=== PATIENT | male | born 1935 | race Caucasian/White ===

== ENCOUNTER 2017-03-31 09:25 | Emergency (ER) | payer OTHER, MEDICARE, MEDICAID ==
[~2017-03-31] VITALS: Ht 172.7 cm; Wt 104.5 kg
[~2017-03-31 09:25] MED LIST: APIX2.5T PO; ASPI-611 PO; ATOR10TA70 PO; BUDE10.2 INH; CETI-102 PO; FOLI1TAB16 PO; GLIP10TA11 PO; HYDR-565 PO; KETO5DRO82 LEFTEYE; KETO5DRO82 RIGHTEYE; LANTUS SQ; LOSA50TA3 PO; METH500T PO; METO100T14 PO; OMEP20TA5 PO; TERA2CAP4 PO; VIG0.5OS RIGHTEYE
[2017-03-31] MEDS ORDERED: LIDOcaine 1.5% w/epinephrine 1:200,000 5ml ampul IJ ONE (10:45)
[2017-03-31] MEDS ORDERED: HYDROcodone/acetaminophen 5mg/325mg tablet PO ONE (11:00)
[2017-03-31] MEDS ORDERED: cephalexin 500mg capsule PO ONE (12:30)
[2017-03-31] MEDS ORDERED: CEPH-571 PO (12:32)
[2017-03-31] MEDS ORDERED: HYDR-569 PO (12:34)
[2017-03-31 14:17] VITALS: BP 147/73
== END 2017-03-31 14:21 | disposition home or self-care (01) ==
LOC: ER 09:25
DX: S83.91XA Sprain of unspecified site of right knee, initial encounter (principal); M25.461 Effusion, right knee; I25.10 Atherosclerotic heart disease of native coronary artery without angina pectoris; E11.9 Type 2 diabetes mellitus without complications; I10 Essential (primary) hypertension; J45.909 Unspecified asthma, uncomplicated; Z79.82 Long term (current) use of aspirin; Z79.4 Long term (current) use of insulin; Z95.1 Presence of aortocoronary bypass graft; W00.0XXA Fall on same level due to ice and snow, initial encounter; Y93.89 Activity, other specified; Y92.89 Other specified places as the place of occurrence of the external cause; Y99.8 Other external cause status
CPT/HCPCS: 12002; 20610; 73564; 73700; 99284; A6446; A6449; J3490

== ENCOUNTER 2017-10-04 10:11 | Emergency (ER) | payer MEDICARE, MEDICAID, OTHER ==
[~2017-10-04] VITALS: Ht 170.2 cm; Wt 96.0 kg
[~2017-10-04 10:11] MED LIST changes: +CEPH-571 PO; +HYDR-569 PO
[2017-10-04 10:41] LABS: BASOPHILS % (AUTO) 0.3 % (0-1); EOSINOPHILS # (AUTO) 0.3 X10'3 (0-0.9); EOSINOPHILS % (AUTO) 4.8 % (0-6); HEMOGLOBIN 12.3 g/dl (14.0-17.9); LYMPHOCYTES # (AUTO) 1.5 X10'3 (1.1-4.8); LYMPHOCYTES % (AUTO) 20.6 % (21-51); MEAN CORPUSCULAR HEMOGLOBIN 32.5 PG (27.0-31.0); MEAN CORPUSCULAR HGB CONC 34.3 % (33.0-36.5); MEAN CORPUSCULAR VOLUME 94.9 FL (78-98); MEAN PLATELET VOLUME 7.7 FL (7.4-10.4); MONOCYTES # (AUTO) 0.7 X10'3 (0-0.9); MONOCYTES % (AUTO) 9.9 % (2-12); NEUTROPHILS # (AUTO) 4.6 X10'3 (1.8-7.7); NEUTROPHILS % (AUTO) 64.4 % (42-75); PLATELET COUNT 206 X10'3 (140-440); RED BLOOD COUNT 3.79 X10'6 (4.70-6.10); RED CELL DISTRIBUTION WIDTH 15.3 % (11.5-14.5); WHITE BLOOD COUNT 7.1 X10'3 (4.5-11.0)
[2017-10-04 10:50] LABS: PARTIAL THROMBOPLASTIN TIME 30 SECONDS (22-32); PROTHROMBIN TIME 10.3 SECONDS (9.0-12.0)
[2017-10-04 10:55] LABS: ALANINE AMINOTRANSFERASE 34 U/L (12-78); ALBUMIN 3.1 G/DL (3.4-5.0); ALBUMIN/GLOBULIN RATIO 0.8 (1.1-1.5); ALKALINE PHOSPHATASE 85 IU/L (46-116); ANION GAP 8 (8-16); ASPARTATE AMINO TRANSFERASE 23 U/L (10-37); BILIRUBIN,TOTAL 0.4 MG/DL (0.1-1.0); BLOOD UREA NITROGEN 38 MG/DL (7-18); BUN/CREATININE RATIO 18.2 (5.4-32.0); CALCIUM 8.7 MG/DL (8.5-10.1); CHLORIDE 102 MMOL/L (99-107); CREATININE 2.09 MG/DL (0.60-1.10); GLUCOSE 191 MG/DL (70-104); SODIUM 134 MMOL/L (135-145); TOTAL CARBON DIOXIDE 23.9 MMOL/L (24-32); eGFR 31 ML/MIN
[2017-10-04 12:29] VITALS: BP 149/74
== END 2017-10-04 12:31 | disposition home or self-care (01) ==
LOC: ER 10:11
DX: R00.2 Palpitations (principal); I12.9 Hypertensive chronic kidney disease with stage 1 through stage 4 chronic kidney disease, or unspecified chronic kidney disease; E11.22 Type 2 diabetes mellitus with diabetic chronic kidney disease; N18.9 Chronic kidney disease, unspecified; J45.909 Unspecified asthma, uncomplicated; I25.10 Atherosclerotic heart disease of native coronary artery without angina pectoris; Z95.1 Presence of aortocoronary bypass graft; Z79.82 Long term (current) use of aspirin; Z79.899 Other long term (current) drug therapy; Z79.4 Long term (current) use of insulin
CPT/HCPCS: 36415; 71045; 80053; 84484; 85025; 85610; 85730; 93005; 99285

== ENCOUNTER 2018-03-15 11:59 | Inpatient (IN) | payer MEDICARE, OTHER ==
[~2018-03-15] VITALS: Ht 172.7 cm; Wt 115.0 kg
[~2018-03-15 11:59] MED LIST changes: +HYDR-4353 PO; +HYDR-4383 PO; -HYDR-565 PO; -HYDR-569 PO
[2018-03-15 12:51] LABS: BASOPHILS % (AUTO) 0.2 % (0-1); EOSINOPHILS # (AUTO) 0.1 X10'3 (0-0.9); EOSINOPHILS % (AUTO) 0.9 % (0-6); HEMOGLOBIN 12.3 g/dl (14.0-17.9); LYMPHOCYTES # (AUTO) 0.5 X10'3 (1.1-4.8); LYMPHOCYTES % (AUTO) 7.3 % (21-51); MEAN CORPUSCULAR HEMOGLOBIN 32.6 PG (27.0-31.0); MEAN CORPUSCULAR HGB CONC 33.3 g/dL (33.0-36.5); MEAN CORPUSCULAR VOLUME 97.8 FL (78-98); MEAN PLATELET VOLUME 7.1 FL (7.4-10.4); MONOCYTES # (AUTO) 0.1 X10'3 (0-0.9); MONOCYTES % (AUTO) 1.7 % (2-12); NEUTROPHILS # (AUTO) 6.3 X10'3 (1.8-7.7); NEUTROPHILS % (AUTO) 89.9 % (42-75); PLATELET COUNT 245 X10'3 (140-440); RED BLOOD COUNT 3.79 X10'6 (4.70-6.10); RED CELL DISTRIBUTION WIDTH 15.3 % (11.5-14.5); WHITE BLOOD COUNT 7.1 X10'3 (4.5-11.0)
[2018-03-15 13:04] LABS: INR 1.1 INR; PROTHROMBIN TIME 10.7 SECONDS (9.0-12.0)
[2018-03-15 13:18] LABS: ALANINE AMINOTRANSFERASE 48 U/L (12-78); ALBUMIN 2.7 G/DL (3.4-5.0); ALBUMIN/GLOBULIN RATIO 0.8 (1.1-1.5); ALKALINE PHOSPHATASE 92 IU/L (46-116); ANION GAP 9 (8-16); ASPARTATE AMINO TRANSFERASE 28 U/L (10-37); BILIRUBIN,TOTAL 0.4 MG/DL (0.1-1.0); BLOOD UREA NITROGEN 36 MG/DL (7-18); BUN/CREATININE RATIO 18.9 (5.4-32.0); CALCIUM 8.1 MG/DL (8.5-10.1); CHLORIDE 103 MMOL/L (99-107); GLUCOSE 188 MG/DL (70-104); MAGNESIUM 1.7 MG/DL (1.5-2.4); POTASSIUM 4.7 MMOL/L (3.5-5.1); SODIUM 138 MMOL/L (135-145); TOTAL CARBON DIOXIDE 26.4 MMOL/L (24-32); TOTAL PROTEIN 6.2 G/DL (6.4-8.2); TROPONIN I < 0.04 NG/ML (0.0-0.05); eGFR 34 ML/MIN
[2018-03-15] MEDS ORDERED: furosemide 10 MG/1 ML 10ml inj IV ONE (13:45)
[2018-03-15] MEDS ORDERED: AMLO5TAB PO (13:50)
[2018-03-15] MEDS ORDERED: APIX5TAB3 PO (13:50)
[2018-03-15] MEDS ORDERED: ALLO100T PO (13:50)
[2018-03-15] MEDS ORDERED: ATOR20TA66 PO (13:59)
[2018-03-15] MEDS ORDERED: CARB1DRO18 OP (13:59)
[2018-03-15] MEDS ORDERED: AZIT250T83 PO (13:59)
[2018-03-15] MEDS ORDERED: CHOL500049 PO (13:59)
[2018-03-15] MEDS ORDERED: INSU100V12 SQ (13:59)
[2018-03-15] MEDS ORDERED: FLUO15CR2 TOP (13:59)
[2018-03-15] MEDS ORDERED: PRED20TA PO (13:59)
[2018-03-15] MEDS ORDERED: SAXA5TAB PO (14:00)
[2018-03-15] MEDS ORDERED: SPIR50TA5 PO (14:00)
--- NOTE | 2018-03-15 14:03 | NUR ---
PATIENT UP TO BSC NO BM
--- NOTE | 2018-03-15 14:04 | NUR ---
[facility] UPDATING FAMILY
[2018-03-15] MEDS ORDERED: morphine 4 MG/ML inj SYRINge IV PRN (14:45)
[2018-03-15] MEDS ORDERED: magnesium hydroxide 30ml (MOM) UD suspension PO PRN (14:45)
[2018-03-15] MEDS ORDERED: mag hydrox/Alum hydrox/simeth 30ml oral suspension PO PRN (14:45)
[2018-03-15] MEDS ORDERED: bisacodyl 10mg suppository rectal RC PRN (14:45)
[2018-03-15] MEDS ORDERED: potassium Cl 40MEQ/NS 500ml 500 ML IV PRN ×2 (14:45)
[2018-03-15] MEDS ORDERED: magnesium 4gm in 100ml NS 100 ML IV PRN (14:45)
[2018-03-15] MEDS ORDERED: magnesium 2GM in 50ml NS 50 ML IV PRN (14:45)
[2018-03-15] MEDS ORDERED: magnesium Cl slow-release 64mg tablet PO PRN (14:45)
[2018-03-15] MEDS ORDERED: ondansetron/PF 4mg/2ml inj IV PRN (14:45)
[2018-03-15] MEDS ORDERED: potassium Cl 20 mEq SR tablet PO PRN ×2 (14:45)
[2018-03-15] MEDS ORDERED: acetaminophen 325mg tablet PO PRN (14:45)
[2018-03-15] MEDS ORDERED: LORazepam 1 MG tablet PO ONE (15:15)
[2018-03-15] MEDS ORDERED: haloperidol 5mg tablet PO ONE (15:15)
[2018-03-15 15:51] LABS: CLARITY,URINE CLEAR (Clear); COLOR,URINE YELLOW (Yellow); GLUCOSE, URINE NEGATIVE (Neg); KETONES,URINE NEGATIVE (Neg); LEUKOCYTE ESTERASE ,URINE NEGATIVE (Neg); NITRITES, URINE NEGATIVE (Neg); OCCULT BLOOD,URINE TRACE-INTACT (Neg); PROTEIN,URINE 100 mg/dl (Neg); UROBILINOGEN,URINE 0.2 E.U/dL (0.2-1.0)
[2018-03-15 15:53] LABS: UA COLLECTION TYPE NON-SPECIFIED
[2018-03-15 16:00] LABS: BACTERIA,URINE NONE SEEN /HPF (Neg); MUCUS STRANDS NONE SEEN /LPF (Neg); RBC,URINE 0-2 /HPF (0-2); SQUAMOUS EPITHELIAL CELL,UR NONE SEEN /LPF (FEW); WBC,URINE NONE SEEN /HPF (0-4)
[2018-03-15] MEDS ORDERED: polyvinyl alcohol ophthalmic drops 15ml bottle EACHEYE PRN (17:30)
[2018-03-15] MEDS ORDERED: glucagon, human recombinant 1mg kit SUBCUT PRN (17:35)
[2018-03-15] MEDS ORDERED: MESSAGE TO PHARMACY PO ONE (17:35)
[2018-03-15] MEDS ORDERED: dextrose 50%-water 50ml dispensing syringe IV PRN ×2 (17:35)
[2018-03-15] MEDS ORDERED: dextrose ORAL solution 15 GM/59 ML bottle PO PRN ×2 (17:35)
[2018-03-15] MEDS ORDERED: albuterol 2.5 MG/3 ML nebule NEB ONE (17:45)
--- NOTE | 2018-03-15 19:06 | NUR ---
PAGED RESPIRATORY FOR NEBS PT WITH AUDIBLE WHEEZE PATIENT ATE 100% OF HIS DINNER
[2018-03-15] MEDS: budesonide 0.5mg/2ml UD nebule IH SCH (19:32)
[2018-03-15] MEDS: albuterol 2.5 MG/3 ML nebule NEB SCH (19:32)
[2018-03-15] MEDS ORDERED: albuterol 2.5 MG/3 ML nebule NEB PRN (19:45)
--- NOTE | 2018-03-15 19:48 | NUR ---
Rec'd call from Reyna CALLE, she will be taking patient, report given, questions answered.
[2018-03-15] MEDS ORDERED: heparin, porcine 5000 units/ml vial SQ SCH (20:00)
--- NOTE | 2018-03-15 20:00 | NUR ---
Received report from WRECKING CRANE ENGINE OPERATOR. Patient to follow shortly.
--- NOTE | 2018-03-15 20:15 | NUR ---
Patient arrived to floor via gurney. Settled into bed, in no pain or respiratory distress at this time. Son at bedside.
[2018-03-15] MEDS: apixaban 5mg tablet PO SCH (20:39)
[2018-03-15] MEDS: docusate sod 100mg capsule PO SCH (20:39)
[2018-03-15] MEDS: furosemide 40mg/4ml inj IV SCH (20:39)
[2018-03-15] MEDS: Terazosin 1mg capsule PO SCH (20:40)
[2018-03-15] MEDS: metoprolol tartrate 50mg tablet PO SCH (20:40)
[2018-03-15 21:30] VITALS: BP 174/84
[2018-03-15] MEDS: insulin glargine (Lantus) pen - multi-dose SQ SCH (22:16)
[2018-03-15] MEDS: insulin Lispro (HumaLOG) vial - multi-dose SQ SCH (22:19)
[2018-03-16] VITALS: BP 160/73
[2018-03-16] MEDS: morphine 4 MG/ML inj SYRINge IV PRN ×2 (01:11→13:49)
[2018-03-16] MEDS: albuterol 2.5 MG/3 ML nebule NEB SCH ×5 (01:35→22:27)
--- NOTE | 2018-03-16 06:35 | NUR ---
Problems reprioritized. Patient report given, questions answered & plan of care reviewed with Humaira Edmondson.
[2018-03-16 07:00] VITALS: BP 142/73
[2018-03-16 07:29] LABS: ALBUMIN 2.4 G/DL (3.4-5.0); ANION GAP 9 (8-16); BLOOD UREA NITROGEN 42 MG/DL (7-18); CALCIUM 8.3 MG/DL (8.5-10.1); CHLORIDE 102 MMOL/L (99-107); GLUCOSE 162 MG/DL (70-104); MAGNESIUM 1.6 MG/DL (1.5-2.4); POTASSIUM 3.9 MMOL/L (3.5-5.1); SODIUM 139 MMOL/L (135-145); TOTAL CARBON DIOXIDE 27.8 MMOL/L (24-32); eGFR 30 ML/MIN
[2018-03-16 07:32] LABS: BASOPHILS % (AUTO) 0.1 % (0-1); EOSINOPHILS % (AUTO) 0.2 % (0-6); HEMATOCRIT 35.3 % (42.0-52.0); HEMOGLOBIN 11.9 g/dl (14.0-17.9); LYMPHOCYTES # (AUTO) 1.2 X10'3 (1.1-4.8); LYMPHOCYTES % (AUTO) 15.1 % (21-51); MEAN CORPUSCULAR HEMOGLOBIN 32.8 PG (27.0-31.0); MEAN CORPUSCULAR HGB CONC 33.6 g/dL (33.0-36.5); MEAN CORPUSCULAR VOLUME 97.7 FL (78-98); MEAN PLATELET VOLUME 7.6 FL (7.4-10.4); MONOCYTES # (AUTO) 0.8 X10'3 (0-0.9); MONOCYTES % (AUTO) 10.1 % (2-12); NEUTROPHILS # (AUTO) 5.9 X10'3 (1.8-7.7); NEUTROPHILS % (AUTO) 74.5 % (42-75); PLATELET COUNT 237 X10'3 (140-440); RED BLOOD COUNT 3.61 X10'6 (4.70-6.10); RED CELL DISTRIBUTION WIDTH 14.4 % (11.5-14.5); WHITE BLOOD COUNT 7.9 X10'3 (4.5-11.0)
[2018-03-16] MEDS: pantoprazole 40mg Tablet.DR PO SCH (07:47)
[2018-03-16] MEDS: furosemide 40mg/4ml inj IV SCH ×2 (07:48→21:25)
[2018-03-16] MEDS: aspirin 81mg tablet.DR PO SCH (07:48)
[2018-03-16] MEDS: atorvastatin 20mg tablet PO SCH (07:48)
[2018-03-16] MEDS: losartan 50mg tablet PO SCH (07:48)
[2018-03-16] MEDS: spironolactone 50 MG tablet PO SCH (07:48)
[2018-03-16] MEDS: metoprolol tartrate 50mg tablet PO SCH (07:48)
[2018-03-16] MEDS: docusate sod 100mg capsule PO SCH ×2 (07:48→21:27)
[2018-03-16] MEDS: allopurinol 100mg tablet PO SCH (07:48)
[2018-03-16] MEDS: apixaban 5mg tablet PO SCH ×2 (07:49→21:28)
[2018-03-16] MEDS: K and/or MAG REPLACEMENT MC SCH (08:00)
[2018-03-16] MEDS: budesonide 0.5mg/2ml UD nebule IH SCH ×2 (08:36→18:37)
[2018-03-16] MEDS: linagliptin 5mg tablet PO SCH (09:29)
[2018-03-16] MEDS: betamet diprop/prop gly 0.05% cream 15gm TP SCH (09:29)
[2018-03-16] MEDS: insulin Lispro (HumaLOG) vial - multi-dose SQ SCH ×3 (09:33→19:04)
[2018-03-16 11:00] VITALS: BP 141/65
--- NOTE | 2018-03-16 14:17 | NUR ---
Consult: Pt admit with SOB/heart failure. Pt is w/ A1C 7.4. Met pt at bedside gave written and verbal DM education. Pt states he uses insulin sometimes but rarely checks his BS. Pt's son states he leaves his father DM friendly food but pt does not eat it during the week only when son is w/ him on weekends. Will continue to monitor. Addendum: 03/16/18 at [address] Amended: Links added. Addendum: 03/16/18 at [address] I have reviewed and agree with note by Tire Changer. Jeanine Calix RD
[2018-03-16] MEDS ORDERED: methylPREDNISolone sod succ 125mg/2ml vial IV ONE (15:05)
[2018-03-16] MEDS: HYDROcodone/acetaminophen 10/325mg tab PO PRN ×2 (16:44→23:19)
[2018-03-16] MEDS: hyDRALAzine 10mg tablet PO SCH ×2 (16:45→23:18)
[2018-03-16 19:00] VITALS: BP 131/56
[2018-03-16] MEDS ORDERED: metoprolol tartrate 50mg tablet PO SCH (20:00)
[2018-03-16] MEDS: methylPREDNISolone sod succ 125mg/2ml vial IV SCH (21:27)
[2018-03-16] MEDS: metoprolol tartrate 25mg tablet PO SCH (21:38)
[2018-03-16] MEDS: Terazosin 1mg capsule PO SCH (21:41)
[2018-03-16] MEDS: insulin glargine (Lantus) pen - multi-dose SQ SCH (22:02)
[2018-03-17] VITALS: BP 118/58
--- NOTE | 2018-03-17 00:50 | NUR ---
Patient awoke and sitting on edge of bed stating that he does not feel well, but not sure why. VS taken: 98.2, 73,16,151/79, 93% on 2 L NC. Accue check taken and BS was 248. When asked again what was bothering him his head, or stomach, pt. stated that he felt a little sick. Zofran given and pt. oOB in recliner at this time.
[2018-03-17] MEDS: methylPREDNISolone sod succ 125mg/2ml vial IV SCH ×3 (02:04→14:18)
[2018-03-17] MEDS: albuterol 2.5 MG/3 ML nebule NEB SCH ×4 (02:38→14:37)
[2018-03-17 06:12] LABS: BASOPHILS % (AUTO) 0.2 % (0-1); EOSINOPHILS % (AUTO) 0 % (0-6); HEMATOCRIT 37.3 % (42.0-52.0); HEMOGLOBIN 12.5 g/dl (14.0-17.9); LYMPHOCYTES # (AUTO) 0.2 X10'3 (1.1-4.8); MEAN CORPUSCULAR HEMOGLOBIN 32.7 PG (27.0-31.0); MEAN CORPUSCULAR HGB CONC 33.6 g/dL (33.0-36.5); MEAN CORPUSCULAR VOLUME 97.3 FL (78-98); MEAN PLATELET VOLUME 7.5 FL (7.4-10.4); MONOCYTES % (AUTO) 0.8 % (2-12); NEUTROPHILS # (AUTO) 5.8 X10'3 (1.8-7.7); PLATELET COUNT 211 X10'3 (140-440); RED BLOOD COUNT 3.83 X10'6 (4.70-6.10); RED CELL DISTRIBUTION WIDTH 14.7 % (11.5-14.5); WHITE BLOOD COUNT 6.1 X10'3 (4.5-11.0)
--- NOTE | 2018-03-17 06:30 | NUR ---
Problems reprioritized. Patient report given, questions answered & plan of care reviewed with Debbie CALLE.
[2018-03-17 06:32] LABS: ALBUMIN 2.4 G/DL (3.4-5.0); ANION GAP 11 (8-16); BLOOD UREA NITROGEN 47 MG/DL (7-18); BUN/CREATININE RATIO 20.5 (5.4-32.0); CALCIUM 8.4 MG/DL (8.5-10.1); CHLORIDE 97 MMOL/L (99-107); CREATININE 2.29 MG/DL (0.60-1.10); GLUCOSE 300 MG/DL (70-104); MAGNESIUM 1.8 MG/DL (1.5-2.4); POTASSIUM 4.4 MMOL/L (3.5-5.1); SODIUM 136 MMOL/L (135-145); TOTAL CARBON DIOXIDE 28.3 MMOL/L (24-32); eGFR 27 ML/MIN
[2018-03-17 07:00] VITALS: BP 139/65
[2018-03-17] MEDS: budesonide 0.5mg/2ml UD nebule IH SCH (07:10)
[2018-03-17] MEDS: K and/or MAG REPLACEMENT MC SCH (08:00)
[2018-03-17] MEDS: docusate sod 100mg capsule PO SCH (08:04)
[2018-03-17] MEDS: atorvastatin 20mg tablet PO SCH (08:04)
[2018-03-17] MEDS: spironolactone 50 MG tablet PO SCH (08:04)
[2018-03-17] MEDS: allopurinol 100mg tablet PO SCH (08:04)
[2018-03-17] MEDS: pantoprazole 40mg Tablet.DR PO SCH (08:04)
[2018-03-17] MEDS: losartan 50mg tablet PO SCH (08:04)
[2018-03-17] MEDS: apixaban 5mg tablet PO SCH (08:04)
[2018-03-17] MEDS: metoprolol tartrate 25mg tablet PO SCH (08:05)
[2018-03-17] MEDS: aspirin 81mg tablet.DR PO SCH (08:05)
[2018-03-17] MEDS: furosemide 40mg/4ml inj IV SCH (08:05)
[2018-03-17] MEDS: hyDRALAzine 10mg tablet PO SCH (08:06)
[2018-03-17] MEDS: betamet diprop/prop gly 0.05% cream 15gm TP SCH (08:09)
[2018-03-17] MEDS: linagliptin 5mg tablet PO SCH (08:09)
[2018-03-17 12:00] VITALS: BP 131/57
[2018-03-17] MEDS ORDERED: COL100C PO (13:38)
[2018-03-17] MEDS ORDERED: PRED10TA23 PO (13:38)
[2018-03-17] MEDS ORDERED: hyDRALAzine tablet PO (13:38)
[2018-03-17] MEDS ORDERED: METO25TA6 PO (13:38)
[2018-03-17] MEDS ORDERED: ALBU8.5H8 INH (13:39)
[2018-03-17] MEDS: insulin Lispro (HumaLOG) vial - multi-dose SQ SCH (14:13)
== END 2018-03-17 15:50 | disposition home health service (06) | DRG 291 ==
LOC: ER 11:59 → ED HOLD 14:44 → SUR 3N 20:30
PROVIDERS: ADMIT Internal Medicine; ATTEND Family Medicine
DX: I13.0 Hypertensive heart and chronic kidney disease with heart failure and stage 1 through stage 4 chronic kidney disease, or unspecified chronic kidney disease (principal); I50.43 Acute on chronic combined systolic (congestive) and diastolic (congestive) heart failure; J44.1 Chronic obstructive pulmonary disease with (acute) exacerbation; J45.901 Unspecified asthma with (acute) exacerbation; E11.22 Type 2 diabetes mellitus with diabetic chronic kidney disease; E11.21 Type 2 diabetes mellitus with diabetic nephropathy; I25.10 Atherosclerotic heart disease of native coronary artery without angina pectoris; I48.91 Unspecified atrial fibrillation; N18.3 Chronic kidney disease, stage 3 (moderate); Z79.01 Long term (current) use of anticoagulants; Z95.1 Presence of aortocoronary bypass graft
CPT/HCPCS: 36415; 71045; 80048; 80053; 81001; 82948; 83036; 83605; 83735; 83880; 84145; 84484; 85025; 85610; 87040; 87070; 87502; 87503; 93005; 93306; 94640; 94760; 96374; 99285; G0378; J1815; J1940; J2270; J2405; J2930; J7626

== ENCOUNTER 2018-05-13 12:01 | Emergency (ER) | payer MEDICARE, OTHER ==
[~2018-05-13] VITALS: Ht 172.7 cm; Wt 109.0 kg
[~2018-05-13 12:01] MED LIST changes: +ALBU8.5H8 INH; +ALLO100T PO; -APIX2.5T PO; +APIX5TAB3 PO; -ATOR10TA70 PO; +ATOR20TA66 PO; +CARB1DRO18 OP; -CEPH-571 PO; -CETI-102 PO; +CHOL500049 PO; +COL100C PO; +FLUO15CR2 TOP; -FOLI1TAB16 PO; -GLIP10TA11 PO; -HYDR-4353 PO; -HYDR-4383 PO; +INSU100V12 SQ; -KETO5DRO82 LEFTEYE; -KETO5DRO82 RIGHTEYE; -LANTUS SQ; -METH500T PO; -METO100T14 PO; +METO25TA6 PO; +SAXA5TAB PO; +SPIR50TA5 PO; -VIG0.5OS RIGHTEYE; +hyDRALAzine tablet PO
[2018-05-13 13:03] LABS: BASOPHILS % (AUTO) 0.6 % (0-1); EOSINOPHILS # (AUTO) 0.2 X10'3 (0-0.9); HEMATOCRIT 32.6 % (42.0-52.0); HEMOGLOBIN 10.8 g/dl (14.0-17.9); LYMPHOCYTES % (AUTO) 17.9 % (21-51); MEAN CORPUSCULAR HEMOGLOBIN 32.8 PG (27.0-31.0); MEAN CORPUSCULAR HGB CONC 33.2 g/dL (33.0-36.5); MEAN CORPUSCULAR VOLUME 98.9 FL (78-98); MEAN PLATELET VOLUME 7.5 FL (7.4-10.4); MONOCYTES # (AUTO) 0.5 X10'3 (0-0.9); MONOCYTES % (AUTO) 9.9 % (2-12); NEUTROPHILS # (AUTO) 3.8 X10'3 (1.8-7.7); NEUTROPHILS % (AUTO) 68.6 % (42-75); PLATELET COUNT 210 X10'3 (140-440); RED BLOOD COUNT 3.29 X10'6 (4.70-6.10); WHITE BLOOD COUNT 5.5 X10'3 (4.5-11.0)
[2018-05-13 13:17] LABS: ALANINE AMINOTRANSFERASE 19 U/L (12-78); ALBUMIN 2.6 G/DL (3.4-5.0); ALBUMIN/GLOBULIN RATIO 0.7 (1.1-1.5); ALKALINE PHOSPHATASE 86 IU/L (46-116); ANION GAP 8 (8-16); ASPARTATE AMINO TRANSFERASE 18 U/L (10-37); BILIRUBIN,TOTAL 0.3 MG/DL (0.1-1.0); BLOOD UREA NITROGEN 32 MG/DL (7-18); BUN/CREATININE RATIO 16.1 (5.4-32.0); CALCIUM 8.6 MG/DL (8.5-10.1); CHLORIDE 106 MMOL/L (99-107); CREATININE 1.99 MG/DL (0.60-1.10); GLUCOSE 143 MG/DL (70-104); POTASSIUM 5.2 MMOL/L (3.5-5.1); SODIUM 138 MMOL/L (135-145); TOTAL CARBON DIOXIDE 23.7 MMOL/L (24-32); TOTAL PROTEIN 6.2 G/DL (6.4-8.2); eGFR 32 ML/MIN
[2018-05-13] MEDS ORDERED: metoprolol tartrate 1mg/ml inj IV ONE (13:20)
[2018-05-13 13:38] LABS: PARTIAL THROMBOPLASTIN TIME 31 SECONDS (22-32); PROTHROMBIN TIME 10.1 SECONDS (9.0-12.0)
[2018-05-13] MEDS ORDERED: cloNIDine 0.1 mg tablet PO ONE (14:05)
[2018-05-13 14:44] VITALS: BP 200/90
[2018-05-13 14:56] LABS: CLARITY,URINE CLEAR (Clear); COLOR,URINE STRAW (Yellow); GLUCOSE, URINE NEGATIVE (Neg); KETONES,URINE NEGATIVE (Neg); LEUKOCYTE ESTERASE ,URINE NEGATIVE (Neg); NITRITES, URINE NEGATIVE (Neg); OCCULT BLOOD,URINE TRACE-INTACT (Neg); PH,URINE 7.5 (4.8-8.0); PROTEIN,URINE 100 mg/dl (Neg); UROBILINOGEN,URINE 0.2 E.U/dL (0.2-1.0)
[2018-05-13 14:57] LABS: UA COLLECTION TYPE CLN CATCH MIDSTREAM
[2018-05-13 15:03] LABS: MUCUS STRANDS NONE SEEN /LPF (Neg); SQUAMOUS EPITHELIAL CELL,UR NONE SEEN /LPF (FEW); WBC,URINE 0-4 /HPF (0-4)
[2018-05-13 15:04] LABS: BACTERIA,URINE NONE SEEN /HPF (Neg); RBC,URINE 0-2 /HPF (0-2); TRANSITIONAL EPI CELLS,URINE FEW /HPF
== END 2018-05-13 14:50 | disposition home or self-care (01) ==
LOC: ER 12:01
DX: R51 Headache (principal); I25.10 Atherosclerotic heart disease of native coronary artery without angina pectoris; J45.909 Unspecified asthma, uncomplicated; E11.9 Type 2 diabetes mellitus without complications; I11.0 Hypertensive heart disease with heart failure; I50.9 Heart failure, unspecified; Z95.1 Presence of aortocoronary bypass graft; Z79.899 Other long term (current) drug therapy; Z79.82 Long term (current) use of aspirin; Z79.4 Long term (current) use of insulin
CPT/HCPCS: 36415; 70450; 71045; 80053; 81001; 85025; 85610; 85730; 93005; 99284

== ENCOUNTER 2018-06-18 09:55 | Emergency (ER) | payer MEDICARE, OTHER ==
[~2018-06-18] VITALS: Ht 172.7 cm; Wt 104.4 kg
--- NOTE | 2018-06-18 10:10 | NUR ---
DR WOOD INFORMED PT CAME FROM [facility] WITH COPY OF XRAY AT BEDSIDE, NO PROTOCOL ORDERED AT THIS TIME.
[2018-06-18] MEDS ORDERED: acetaminophen 325mg tablet PO ONE (10:35)
--- NOTE | 2018-06-18 11:01 | NUR ---
MD requests patient have velcro wrist splint and arm sling. MD aware that patient drove here from [place]. Placed wrist splint on pt and gave arm sling to pt to wear when home since pt is driving himself home. Educated pt. not to drive while taking prescribed narcotics.
--- NOTE | 2018-06-18 11:03 | NUR ---
educated on use of wrist splint and arm sling.
[2018-06-18 12:03] VITALS: BP 122/56
== END 2018-06-18 11:58 | disposition home or self-care (01) ==
LOC: ER 09:56
DX: S52.692A Other fracture of lower end of left ulna, initial encounter for closed fracture (principal); M54.2 Cervicalgia; R51 Headache; I25.10 Atherosclerotic heart disease of native coronary artery without angina pectoris; I11.0 Hypertensive heart disease with heart failure; I50.9 Heart failure, unspecified; J45.909 Unspecified asthma, uncomplicated; E11.9 Type 2 diabetes mellitus without complications; Z79.82 Long term (current) use of aspirin; Z79.4 Long term (current) use of insulin; Z79.899 Other long term (current) drug therapy
CPT/HCPCS: 29125; 70450; 72125; 73110; 99284

== ENCOUNTER 2018-06-26 10:02 | Outpatient (CLI) | payer MEDICARE, OTHER ==
[2018-06-26 10:07] VITALS: BP 188/80
== END 2018-06-26 10:49 | disposition home or self-care (01) ==
LOC: ORTHO 10:02
PROVIDERS: ATTEND Orthopaedic Surgery
DX: S52.692A Other fracture of lower end of left ulna, initial encounter for closed fracture (principal); W18.39XA Other fall on same level, initial encounter; Y93.01 Activity, walking, marching and hiking; Y92.89 Other specified places as the place of occurrence of the external cause; Y99.8 Other external cause status
CPT/HCPCS: 73110; 99213; A4590

== ENCOUNTER 2018-07-18 11:21 | Outpatient (CLI) | payer MEDICARE, OTHER ==
[2018-07-18 11:30] VITALS: BP 158/79
== END 2018-07-18 13:30 | disposition home or self-care (01) ==
LOC: ORTHO 11:21
PROVIDERS: ATTEND Orthopaedic Surgery
DX: S52.602D Unspecified fracture of lower end of left ulna, subsequent encounter for closed fracture with routine healing (principal); M25.732 Osteophyte, left wrist; X58.XXXD Exposure to other specified factors, subsequent encounter
CPT/HCPCS: 29075; 73110; G0463

== ENCOUNTER 2018-08-14 13:22 | Outpatient (CLI) | payer MEDICARE, OTHER | END 2018-08-14 14:23 | disposition home or self-care (01) | LOC: ORTHO 13:22 | PROVIDERS: ATTEND Orthopaedic Surgery | DX: S52.692D Other fracture of lower end of left ulna, subsequent encounter for closed fracture with routine healing (principal); I10 Essential (primary) hypertension; E11.9 Type 2 diabetes mellitus without complications; J45.909 Unspecified asthma, uncomplicated; X58.XXXD Exposure to other specified factors, subsequent encounter | CPT/HCPCS: 73110; G0463 ==

== ENCOUNTER 2018-08-28 12:04 | Emergency (ER) | payer MEDICARE, OTHER ==
[~2018-08-28] VITALS: Ht 172.7 cm; Wt 100.0 kg
[2018-08-28] MEDS ORDERED: sodium bicarbonate (8.4%) 1 mEq/ml syringe IV ONE ×2 (12:08→13:25)
[2018-08-28] MEDS ORDERED: calcium chloride 100 MG/1 ML inj IV ONE ×2 (12:08→13:25)
--- NOTE | 2018-08-28 12:39 | NUR ---
pt grandson Vahe called, pt states ok to discuss medical treatment with his grandson
[2018-08-28 13:17] LABS: ALANINE AMINOTRANSFERASE 24 U/L (12-78); ALBUMIN 2.8 G/DL (3.4-5.0); ALBUMIN/GLOBULIN RATIO 0.7 (1.1-1.5); ALKALINE PHOSPHATASE 91 IU/L (46-116); ANION GAP 8 (8-16); ASPARTATE AMINO TRANSFERASE 16 U/L (10-37); BILIRUBIN,TOTAL 0.2 MG/DL (0.1-1.0); BLOOD UREA NITROGEN 39 MG/DL (7-18); BUN/CREATININE RATIO 15.8 (5.4-32.0); CALCIUM 8.4 MG/DL (8.5-10.1); CHLORIDE 106 MMOL/L (99-107); CREATININE 2.47 MG/DL (0.60-1.10); GLUCOSE 166 MG/DL (70-104); SODIUM 134 MMOL/L (135-145); TOTAL CARBON DIOXIDE 20.1 MMOL/L (24-32); TOTAL PROTEIN 6.6 G/DL (6.4-8.2); eGFR 25 ML/MIN
[2018-08-28 13:22] LABS: POTASSIUM 6.5 MMOL/L (3.5-5.1)
[2018-08-28] MEDS ORDERED: dextrose 50%-water 50ml dispensing syringe IV ONE (13:25)
[2018-08-28] MEDS ORDERED: furosemide 40mg/4ml inj IV ONE (13:25)
[2018-08-28] MEDS ORDERED: insulin regular, human 10 units/0.1 ml syringe IV ONE (13:25)
[2018-08-28 15:18] LABS: CLARITY,URINE CLEAR (Clear); COLOR,URINE STRAW (Yellow); GLUCOSE, URINE 250 mg/dl (Neg); KETONES,URINE NEGATIVE (Neg); LEUKOCYTE ESTERASE ,URINE NEGATIVE (Neg); NITRITES, URINE NEGATIVE (Neg); OCCULT BLOOD,URINE NEGATIVE (Neg); PH,URINE 7.5 (4.8-8.0); PROTEIN,URINE 100 mg/dl (Neg); UROBILINOGEN,URINE 0.2 E.U/dL (0.2-1.0)
[2018-08-28 15:20] LABS: UA COLLECTION TYPE CLN CATCH MIDSTREAM
[2018-08-28 15:24] LABS: MUCUS STRANDS FEW /LPF (Neg); SQUAMOUS EPITHELIAL CELL,UR FEW /LPF (FEW)
[2018-08-28 15:25] LABS: BACTERIA,URINE FEW /HPF (Neg); RBC,URINE 0-2 /HPF (0-2); WBC,URINE 0-4 /HPF (0-4)
[2018-08-28] MEDS ORDERED: KAY15L PO (15:49)
[2018-08-28 16:04] VITALS: BP 160/71
== END 2018-08-28 16:10 | disposition home or self-care (01) ==
LOC: ER 12:07
DX: E87.5 Hyperkalemia (principal); I25.10 Atherosclerotic heart disease of native coronary artery without angina pectoris; I13.0 Hypertensive heart and chronic kidney disease with heart failure and stage 1 through stage 4 chronic kidney disease, or unspecified chronic kidney disease; E11.22 Type 2 diabetes mellitus with diabetic chronic kidney disease; N18.9 Chronic kidney disease, unspecified; I50.9 Heart failure, unspecified; J45.909 Unspecified asthma, uncomplicated; Z95.1 Presence of aortocoronary bypass graft; Z60.2 Problems related to living alone; Z79.82 Long term (current) use of aspirin; Z79.4 Long term (current) use of insulin; Z79.01 Long term (current) use of anticoagulants; Z79.899 Other long term (current) drug therapy
CPT/HCPCS: 36415; 80053; 81001; 83880; 84132; 93005; 96374; 96375; 99284; J1815; J1940

== ENCOUNTER 2018-10-10 11:14 | Outpatient (CLI) | payer MEDICARE, OTHER | END 2018-10-10 12:35 | disposition home or self-care (01) | LOC: ORTHO 11:14 | PROVIDERS: ATTEND Orthopaedic Surgery | DX: S52.602D Unspecified fracture of lower end of left ulna, subsequent encounter for closed fracture with routine healing (principal); X58.XXXD Exposure to other specified factors, subsequent encounter | CPT/HCPCS: 73110; G0463 ==

== ENCOUNTER 2019-08-05 12:21 | Emergency (ER) | payer OTHER, MEDICARE ==
[~2019-08-05] VITALS: Ht 172.7 cm; Wt 101.8 kg
[~2019-08-05 12:21] MED LIST changes: +AMLO10TA13 PO; -APIX5TAB3 PO; +DONE5TAB7 PO; +FLO0.4C PO; +FURO-149 PO; +GABA-530 PO; +HYDR-4069 PO; -LOSA50TA3 PO; +MAGN400C PO; +METO-384 PO; -METO25TA6 PO; -SAXA5TAB PO; -SPIR50TA5 PO; -TERA2CAP4 PO; +XAL0.005OS EACHEYE; -hyDRALAzine tablet PO
[2019-08-05 14:42] LABS: BASOPHILS % (AUTO) 0.6 % (0-1); EOSINOPHILS # (AUTO) 0.2 X10'3 (0-0.9); EOSINOPHILS % (AUTO) 4.1 % (0-6); HEMATOCRIT 27.4 % (42.0-52.0); HEMOGLOBIN 8.7 g/dl (14.0-17.9); LYMPHOCYTES # (AUTO) 0.9 X10'3 (1.1-4.8); LYMPHOCYTES % (AUTO) 16.2 % (21-51); MEAN CORPUSCULAR HGB CONC 31.8 g/dL (33.0-36.5); MEAN CORPUSCULAR VOLUME 91.2 FL (78-98); MEAN PLATELET VOLUME 6.4 FL (7.4-10.4); MONOCYTES # (AUTO) 0.6 X10'3 (0-0.9); MONOCYTES % (AUTO) 10.6 % (2-12); NEUTROPHILS # (AUTO) 3.8 X10'3 (1.8-7.7); NEUTROPHILS % (AUTO) 68.5 % (42-75); PLATELET COUNT 290 X10'3 (140-440); RED CELL DISTRIBUTION WIDTH 19.3 % (11.5-14.5); WHITE BLOOD COUNT 5.6 X10'3 (4.5-11.0)
[2019-08-05 14:47] LABS: PARTIAL THROMBOPLASTIN TIME 37 SECONDS (22-32)
[2019-08-05 14:52] LABS: ALANINE AMINOTRANSFERASE 15 U/L (12-78); ALBUMIN/GLOBULIN RATIO 0.7 (1.1-1.5); ALKALINE PHOSPHATASE 97 IU/L (46-116); ANION GAP 7 (8-16); ASPARTATE AMINO TRANSFERASE 14 U/L (10-37); BILIRUBIN,TOTAL 0.4 MG/DL (0.1-1.0); BLOOD UREA NITROGEN 25 MG/DL (7-18); BUN/CREATININE RATIO 10.9 (5.4-32.0); CALCIUM 8.6 MG/DL (8.5-10.1); CHLORIDE 102 MMOL/L (99-107); GLUCOSE 204 MG/DL (70-104); POTASSIUM 4.4 MMOL/L (3.5-5.1); SODIUM 138 MMOL/L (135-145); TOTAL CARBON DIOXIDE 29.1 MMOL/L (24-32); TOTAL PROTEIN 7.2 G/DL (6.4-8.2); eGFR 27 ML/MIN
[2019-08-05 14:59] LABS: MAGNESIUM 1.9 MG/DL (1.5-2.4)
[2019-08-05 15:14] LABS: PLATELET ESTIMATE NORMAL
[2019-08-05 15:15] LABS: ANISOCYTOSIS 2+
[2019-08-05 16:26] VITALS: BP 151/72
== END 2019-08-05 16:27 | disposition home or self-care (01) ==
LOC: ER 12:22
DX: I13.2 Hypertensive heart and chronic kidney disease with heart failure and with stage 5 chronic kidney disease, or end stage renal disease (principal); E11.22 Type 2 diabetes mellitus with diabetic chronic kidney disease; N18.6 End stage renal disease; R06.02 Shortness of breath; M79.89 Other specified soft tissue disorders; I25.10 Atherosclerotic heart disease of native coronary artery without angina pectoris; J45.909 Unspecified asthma, uncomplicated; J44.9 Chronic obstructive pulmonary disease, unspecified; Z99.2 Dependence on renal dialysis; Z98.890 Other specified postprocedural states; Z60.2 Problems related to living alone; Z79.82 Long term (current) use of aspirin; Z79.4 Long term (current) use of insulin; Z79.899 Other long term (current) drug therapy
CPT/HCPCS: 36415; 71045; 80053; 83735; 83880; 84484; 85025; 85379; 85610; 85730; 93005; 93971; 99285

== ENCOUNTER 2020-01-05 13:14 | Emergency (ER) | payer OTHER, MEDICARE ==
[~2020-01-05] VITALS: Ht 172.7 cm; Wt 96.4 kg
[~2020-01-05 13:14] MED LIST changes: -ASPI-611 PO; -CARB1DRO18 OP; +CHOL10006 PO; -CHOL500049 PO; -COL100C PO; +FERR324T4 PO; -INSU100V12 SQ; -MAGN400C PO; +MELA3TAB39 PO; -XAL0.005OS EACHEYE
[2020-01-05 14:04] LABS: ALANINE AMINOTRANSFERASE 15 U/L (12-78); ALBUMIN 3.5 G/DL (3.4-5.0); ALBUMIN/GLOBULIN RATIO 0.8 (1.1-1.5); ALKALINE PHOSPHATASE 102 IU/L (46-116); ANION GAP 11 (8-16); ASPARTATE AMINO TRANSFERASE 13 U/L (10-37); BILIRUBIN,TOTAL 0.5 MG/DL (0.1-1.0); BLOOD UREA NITROGEN 49 MG/DL (7-18); BUN/CREATININE RATIO 13.8 (5.4-32.0); CALCIUM 8.6 MG/DL (8.5-10.1); CHLORIDE 103 MMOL/L (99-107); CREATININE 3.55 MG/DL (0.60-1.10); GLUCOSE 111 MG/DL (70-104); POTASSIUM 5.1 MMOL/L (3.5-5.1); SODIUM 139 MMOL/L (135-145); TOTAL CARBON DIOXIDE 25.1 MMOL/L (24-32); TOTAL PROTEIN 8.1 G/DL (6.4-8.2); eGFR 17 ML/MIN
[2020-01-05 14:17] LABS: BASOPHILS % (AUTO) 0.6 % (0-1); EOSINOPHILS # (AUTO) 0.2 X10'3 (0-0.9); EOSINOPHILS % (AUTO) 3.2 % (0-6); HEMATOCRIT 40.9 % (42.0-52.0); LYMPHOCYTES % (AUTO) 15.9 % (21-51); MEAN CORPUSCULAR HEMOGLOBIN 31.5 PG (27.0-31.0); MEAN CORPUSCULAR HGB CONC 31.7 g/dL (33.0-36.5); MEAN CORPUSCULAR VOLUME 99.5 FL (78-98); MEAN PLATELET VOLUME 6.8 FL (7.4-10.4); MONOCYTES # (AUTO) 0.6 X10'3 (0-0.9); MONOCYTES % (AUTO) 9.1 % (2-12); NEUTROPHILS # (AUTO) 4.4 X10'3 (1.8-7.7); NEUTROPHILS % (AUTO) 71.2 % (42-75); PLATELET COUNT 206 X10'3 (140-440); RED BLOOD COUNT 4.11 X10'6 (4.70-6.10); RED CELL DISTRIBUTION WIDTH 20.1 % (11.5-14.5); WHITE BLOOD COUNT 6.2 X10'3 (4.5-11.0)
--- NOTE | 2020-01-05 14:41 | NUR ---
Patient updated on POC. Karla Escamilla to bedside.
[2020-01-05 14:43] LABS: ANISOCYTOSIS 3+; ELLIPTOCYTES 1+; HYPOCHROMASIA 1+; PLATELET ESTIMATE NORMAL; POLYCHROMASIA 1+; SPHEROCYTES FEW
[2020-01-05 15:21] VITALS: BP 151/77
== END 2020-01-05 15:22 | disposition home or self-care (01) ==
LOC: ER 13:15
DX: J90 Pleural effusion, not elsewhere classified (principal); I25.10 Atherosclerotic heart disease of native coronary artery without angina pectoris; I50.9 Heart failure, unspecified; I11.0 Hypertensive heart disease with heart failure; J44.9 Chronic obstructive pulmonary disease, unspecified; N18.6 End stage renal disease; I12.0 Hypertensive chronic kidney disease with stage 5 chronic kidney disease or end stage renal disease; E11.22 Type 2 diabetes mellitus with diabetic chronic kidney disease; Z99.2 Dependence on renal dialysis; Z95.1 Presence of aortocoronary bypass graft; Z79.899 Other long term (current) drug therapy; Z98.890 Other specified postprocedural states
CPT/HCPCS: 36415; 71045; 80053; 83880; 84484; 85008; 85025; 93005; 99285

== ENCOUNTER 2020-02-24 12:48 | Emergency (ER) | payer OTHER, MEDICARE ==
[~2020-02-24] VITALS: Ht 172.7 cm; Wt 95.5 kg
[~2020-02-24 12:48] MED LIST changes: +levoFLOXACIN-Levaquin 250mg/D5 50 ML IV ONE
[2020-02-24 15:21] LABS: BASOPHILS # (AUTO) 0.1 X10'3 (0-0.2); BASOPHILS % (AUTO) 1.8 % (0-1); EOSINOPHILS # (AUTO) 0.2 X10'3 (0-0.9); EOSINOPHILS % (AUTO) 4.3 % (0-6); HEMATOCRIT 42.6 % (42.0-52.0); HEMOGLOBIN 13.6 g/dl (14.0-17.9); LYMPHOCYTES % (AUTO) 18.2 % (21-51); MEAN CORPUSCULAR HEMOGLOBIN 31.8 PG (27.0-31.0); MEAN CORPUSCULAR HGB CONC 31.9 g/dL (33.0-36.5); MEAN CORPUSCULAR VOLUME 99.7 FL (78-98); MEAN PLATELET VOLUME 6.7 FL (7.4-10.4); MONOCYTES # (AUTO) 0.7 X10'3 (0-0.9); MONOCYTES % (AUTO) 11.9 % (2-12); NEUTROPHILS # (AUTO) 3.6 X10'3 (1.8-7.7); NEUTROPHILS % (AUTO) 63.8 % (42-75); PLATELET COUNT 203 X10'3 (140-440); RED BLOOD COUNT 4.27 X10'6 (4.70-6.10); RED CELL DISTRIBUTION WIDTH 18.7 % (11.5-14.5); WHITE BLOOD COUNT 5.6 X10'3 (4.5-11.0)
--- NOTE | 2020-02-24 15:32 | NUR ---
LAST HD, YESTERDAY, SUNDAY AT [facility]
--- NOTE | 2020-02-24 15:33 | NUR ---
VASCULAR IN ROOM
--- NOTE | 2020-02-24 15:33 | NUR ---
RIGTH UPPER CHEST BRENDA CATHETER
[2020-02-24 15:40] LABS: ALANINE AMINOTRANSFERASE 16 U/L (12-78); ALBUMIN/GLOBULIN RATIO 0.6 (1.1-1.5); ALKALINE PHOSPHATASE 104 IU/L (46-116); ANION GAP 7 (8-16); ASPARTATE AMINO TRANSFERASE 14 U/L (10-37); BILIRUBIN,TOTAL 0.4 MG/DL (0.1-1.0); BLOOD UREA NITROGEN 36 MG/DL (7-18); BUN/CREATININE RATIO 11.8 (5.4-32.0); CALCIUM 7.9 MG/DL (8.5-10.1); CHLORIDE 101 MMOL/L (99-107); CREATININE 3.05 MG/DL (0.60-1.10); GLUCOSE 137 MG/DL (70-104); POTASSIUM 5.2 MMOL/L (3.5-5.1); SODIUM 136 MMOL/L (135-145); TOTAL CARBON DIOXIDE 28.3 MMOL/L (24-32); TOTAL PROTEIN 7.9 G/DL (6.4-8.2); eGFR 20 ML/MIN
[2020-02-24 15:46] LABS: MAGNESIUM 1.9 MG/DL (1.5-2.4)
[2020-02-24 15:57] LABS: ANISOCYTOSIS 2+; PLATELET ESTIMATE NORMAL
[2020-02-24] MEDS ORDERED: LEVO500T89 PO (15:57)
[2020-02-24] MEDS ORDERED: levoFLOXACIN-Levaquin 250mg/D5 50 ML IV ONE (16:05)
--- NOTE | 2020-02-24 16:05 | NUR ---
PER DR FOWLER, UA IS NOT NEEDED PRIOR TO DISCHARGE
[2020-02-24 17:41] VITALS: BP 142/65
== END 2020-02-24 17:49 | disposition home or self-care (01) ==
LOC: ER 12:48
DX: L03.116 Cellulitis of left lower limb (principal); I87.8 Other specified disorders of veins; I13.2 Hypertensive heart and chronic kidney disease with heart failure and with stage 5 chronic kidney disease, or end stage renal disease; E11.22 Type 2 diabetes mellitus with diabetic chronic kidney disease; N18.6 End stage renal disease; I50.9 Heart failure, unspecified; I25.10 Atherosclerotic heart disease of native coronary artery without angina pectoris; J45.909 Unspecified asthma, uncomplicated; Z99.2 Dependence on renal dialysis; Z95.1 Presence of aortocoronary bypass graft; Z60.2 Problems related to living alone; Z88.8 Allergy status to other drugs, medicaments and biological substances; Z79.899 Other long term (current) drug therapy
CPT/HCPCS: 36415; 71045; 80053; 82948; 83735; 83880; 84145; 85008; 85025; 93005; 93926; 93971; 96365; 99285; J1956

== ENCOUNTER 2021-04-08 00:40 | Emergency (ER) | payer OTHER, MEDICARE ==
[~2021-04-08] VITALS: Ht 172.7 cm; Wt 98.6 kg
[~2021-04-08 00:40] MED LIST changes: -ALBU8.5H8 INH; -ALLO100T PO; +ALLO100T25 PO; +APIX2.5T PO; +ASPI-611 PO; +ATOR10TA70 PO; -ATOR20TA66 PO; -BUDE10.2 INH; +CHOL100046 PO; -CHOL10006 PO; +DONE-46 PO; -DONE5TAB7 PO; -FERR324T4 PO; -FLUO15CR2 TOP; -FURO-149 PO; +FURO40TA4 PO; +GENT30CR TOP; +HYDR-3965 PO; -MELA3TAB39 PO; +OMEP20CA16 PO; -OMEP20TA5 PO; +SILV50CR31 TOP; -levoFLOXACIN-Levaquin 250mg/D5 50 ML IV ONE
--- NOTE | 2021-04-08 01:00 | NUR ---
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 Sx x 1wk ago.
[2021-04-08 01:35] LABS: BASOPHILS # (AUTO) 0.1 X10'3 (0-0.2); BASOPHILS % (AUTO) 0.7 % (0-1); EOSINOPHILS # (AUTO) 0.3 X10'3 (0-0.9); EOSINOPHILS % (AUTO) 4.1 % (0-6); HEMATOCRIT 27.7 % (42.0-52.0); HEMOGLOBIN 9.3 g/dl (14.0-17.9); LYMPHOCYTES # (AUTO) 0.8 X10'3 (1.1-4.8); MEAN CORPUSCULAR HGB CONC 33.5 g/dL (33.0-36.5); MEAN CORPUSCULAR VOLUME 98.4 FL (78-98); MEAN PLATELET VOLUME 6.7 FL (7.4-10.4); MONOCYTES # (AUTO) 0.7 X10'3 (0-0.9); MONOCYTES % (AUTO) 9.7 % (2-12); NEUTROPHILS # (AUTO) 5.2 X10'3 (1.8-7.7); NEUTROPHILS % (AUTO) 74.5 % (42-75); PLATELET COUNT 335 X10'3 (140-440); RED BLOOD COUNT 2.81 X10'6 (4.70-6.10); RED CELL DISTRIBUTION WIDTH 19.6 % (11.5-14.5)
[2021-04-08 01:42] LABS: ALANINE AMINOTRANSFERASE 20 U/L (12-78); ALBUMIN 2.3 G/DL (3.4-5.0); ALBUMIN/GLOBULIN RATIO 0.5 (1.1-1.5); ALKALINE PHOSPHATASE 120 IU/L (46-116); ANION GAP 10 (8-16); ASPARTATE AMINO TRANSFERASE 18 U/L (10-37); BILIRUBIN,TOTAL 0.4 MG/DL (0.1-1.0); BLOOD UREA NITROGEN 31 MG/DL (7-18); BUN/CREATININE RATIO 10.4 (5.4-32.0); CALCIUM 8.1 MG/DL (8.5-10.1); CHLORIDE 99 MMOL/L (99-107); CREATININE 2.98 MG/DL (0.60-1.10); GLUCOSE 147 MG/DL (70-104); POTASSIUM 4.1 MMOL/L (3.5-5.1); SODIUM 132 MMOL/L (135-145); TOTAL CARBON DIOXIDE 23.4 MMOL/L (24-32); TOTAL PROTEIN 6.9 G/DL (6.4-8.2); eGFR 20 ML/MIN
[2021-04-08 02:43] LABS: ANISOCYTOSIS 2+; PLATELET ESTIMATE NORMAL; POLYCHROMASIA FEW
--- NOTE | 2021-04-08 02:53 | NUR ---
Patient and son updated, awaiting Ct results. Given blanket and pillow. Assist with comfort.
[2021-04-08 04:04] VITALS: BP 128/68
--- NOTE | 2021-04-08 04:04 | NUR ---
Dr Munroe ordered kilgore cath. for large bladder shown on CT. 16 kilgore cath placed, returned of concentrated urine 900ml. Feels better after urine return. Pt schedule for discharge.
[2021-04-08] MEDS ORDERED: POLY17PO10 PO (04:12)
[2021-04-08] MEDS ORDERED: polyethylene glycol 3350 17gm powd pack PO STA (04:12)
[2021-04-08] MEDS ORDERED: GLYC-23 RC (04:12)
[2021-04-08 04:33] LABS: CLARITY,URINE CLEAR (Clear); GLUCOSE, URINE NEGATIVE (Neg); KETONES,URINE NEGATIVE (Neg); LEUKOCYTE ESTERASE ,URINE NEGATIVE (Neg); NITRITES, URINE NEGATIVE (Neg); OCCULT BLOOD,URINE NEGATIVE (Neg); PROTEIN,URINE NEGATIVE (Neg); UROBILINOGEN,URINE 0.2 E.U/dL (0.2-1.0)
[2021-04-08 04:53] LABS: UA COLLECTION TYPE FOLEY CATH
[2021-04-08 05:01] LABS: COLOR,URINE DARK YELLOW (Yellow)
== END 2021-04-08 05:13 | disposition home or self-care (01) ==
LOC: ER 00:41
DX: R33.9 Retention of urine, unspecified (principal); R10.31 Right lower quadrant pain; I12.0 Hypertensive chronic kidney disease with stage 5 chronic kidney disease or end stage renal disease; E11.22 Type 2 diabetes mellitus with diabetic chronic kidney disease; N18.6 End stage renal disease; J90 Pleural effusion, not elsewhere classified; K59.00 Constipation, unspecified; R10.84 Generalized abdominal pain; F03.91 Unspecified dementia, unspecified severity, with behavioral disturbance; I48.91 Unspecified atrial fibrillation; I11.0 Hypertensive heart disease with heart failure; I50.9 Heart failure, unspecified; J44.9 Chronic obstructive pulmonary disease, unspecified; G89.29 Other chronic pain; Z99.2 Dependence on renal dialysis; Z95.5 Presence of coronary angioplasty implant and graft; Z79.82 Long term (current) use of aspirin; Z79.899 Other long term (current) drug therapy; Z89.512 Acquired absence of left leg below knee
CPT/HCPCS: 36415; 51702; 71045; 74176; 80053; 81003; 83605; 85008; 85025; 99285

== ENCOUNTER 2021-08-08 13:33 | Emergency (ER) | payer OTHER, MEDICARE ==
[~2021-08-08] VITALS: Ht 172.7 cm; Wt 195.0 kg
[~2021-08-08 13:33] MED LIST changes: +GLYC-23 RC
[2021-08-08 15:21] VITALS: BP 117/56
--- NOTE | 2021-08-08 15:22 | NUR ---
SON HERE AT THE BEDSIDE. CONDITION REPORT GIVEN. SON STATES THAT TRANSPORTATION WILL BE PROVIDED BY [facility]. ARRANGEMENTS WILL BE MADE FOR TRANSPORT HOME.
== END 2021-08-08 18:49 | disposition home or self-care (01) ==
LOC: ER 13:34
DX: T83.091A Other mechanical complication of indwelling urethral catheter, initial encounter (principal); I48.91 Unspecified atrial fibrillation; I25.10 Atherosclerotic heart disease of native coronary artery without angina pectoris; J44.9 Chronic obstructive pulmonary disease, unspecified; I13.2 Hypertensive heart and chronic kidney disease with heart failure and with stage 5 chronic kidney disease, or end stage renal disease; E11.22 Type 2 diabetes mellitus with diabetic chronic kidney disease; N18.6 End stage renal disease; G89.29 Other chronic pain; Z99.2 Dependence on renal dialysis; Z60.2 Problems related to living alone; Z79.82 Long term (current) use of aspirin; Z79.899 Other long term (current) drug therapy; Y84.6 Urinary catheterization as the cause of abnormal reaction of the patient, or of later complication, without mention of misadventure at the time of the procedure
CPT/HCPCS: 51702; 99284; A4314

== ENCOUNTER 2021-12-18 21:27 | Inpatient (IN) | payer OTHER, MEDICARE ==
[~2021-12-18] VITALS: Ht 172.7 cm; Wt 136.0 kg
[2021-12-18] MEDS ORDERED: MELA10TA2 PO (21:56)
--- NOTE | 2021-12-18 22:02 | NUR ---
SON AT BEDSIDE. PT. LIVES WITH SON. NORMAL 02 SATURATION AT HOME IS BETWEEN 92-95% ON 3L OF OXYGEN.
[2021-12-18 22:13] LABS: BASOPHILS % (AUTO) 0.3 % (0-1); EOSINOPHILS # (AUTO) 0.1 X10'3 (0-0.9); EOSINOPHILS % (AUTO) 1.5 % (0-6); HEMATOCRIT 34.9 % (42.0-52.0); HEMOGLOBIN 11.4 g/dl (14.0-17.9); LYMPHOCYTES # (AUTO) 0.9 X10'3 (1.1-4.8); MEAN CORPUSCULAR HGB CONC 32.6 g/dL (33.0-36.5); MEAN CORPUSCULAR VOLUME 107.2 FL (78-98); MEAN PLATELET VOLUME 6.8 FL (7.4-10.4); MONOCYTES # (AUTO) 0.7 X10'3 (0-0.9); NEUTROPHILS # (AUTO) 5.2 X10'3 (1.8-7.7); NEUTROPHILS % (AUTO) 75.2 % (42-75); PLATELET COUNT 236 X10'3 (140-440); RED BLOOD COUNT 3.26 X10'6 (4.70-6.10); RED CELL DISTRIBUTION WIDTH 15.4 % (11.5-14.5); WHITE BLOOD COUNT 6.9 X10'3 (4.5-11.0)
[2021-12-18 22:29] LABS: ALANINE AMINOTRANSFERASE 15 U/L (12-78); ALBUMIN 2.8 G/DL (3.4-5.0); ALBUMIN/GLOBULIN RATIO 0.5 (1.1-1.5); ALKALINE PHOSPHATASE 156 IU/L (46-116); ANION GAP 13 (8-16); ASPARTATE AMINO TRANSFERASE 19 U/L (10-37); BILIRUBIN,TOTAL 0.9 MG/DL (0.1-1.0); BLOOD UREA NITROGEN 46 MG/DL (7-18); CALCIUM 8.8 MG/DL (8.5-10.1); CHLORIDE 98 MMOL/L (99-107); CREATININE 5.13 MG/DL (0.60-1.10); GLUCOSE 148 MG/DL (70-104); POTASSIUM 5.3 MMOL/L (3.5-5.1); SODIUM 133 MMOL/L (135-145); TOTAL CARBON DIOXIDE 21.8 MMOL/L (24-32); TOTAL PROTEIN 8.6 G/DL (6.4-8.2); eGFR 11 ML/MIN
[2021-12-18] MEDS ORDERED: methylPREDNISolone sod succ 125mg/2ml vial IV ONE (22:35)
[2021-12-18] MEDS ORDERED: ipratropium 0.5 MG/2.5ML nebule IH ONE (22:35)
[2021-12-18] MEDS ORDERED: ondansetron/PF 4mg/2ml inj IV ONE (22:35)
[2021-12-18] MEDS ORDERED: albuterol 2.5 MG/3 ML nebule NEB PRN (22:35)
[2021-12-18 22:46] LABS: MAGNESIUM 1.8 MG/DL (1.5-2.4)
[2021-12-18] MEDS ORDERED: furosemide 10 MG/1 ML 10ml inj IV ONE (23:15)
[2021-12-18 23:30] LABS: CLARITY,URINE CLOUDY (Clear); COLOR,URINE AMBER (Yellow); GLUCOSE, URINE NEGATIVE (Neg); KETONES,URINE TRACE mg/dl (Neg); LEUKOCYTE ESTERASE ,URINE LARGE (Neg); NITRITES, URINE NEGATIVE (Neg); OCCULT BLOOD,URINE LARGE (Neg); PROTEIN,URINE 100 mg/dl (Neg); UROBILINOGEN,URINE 0.2 E.U/dL (0.2-1.0)
[2021-12-18 23:37] LABS: UA COLLECTION TYPE OTHER
[2021-12-18 23:38] LABS: BACTERIA,URINE 3+ /HPF (Neg); RBC,URINE 0-2 /HPF (0-2); SQUAMOUS EPITHELIAL CELL,UR FEW /LPF (FEW)
[2021-12-18 23:39] LABS: AMORPHOUS PHOSPHATES 3+; YEAST FEW /HPF (NEGATIVE)
[2021-12-19] MEDS ORDERED: piperacillin/tazo 3.375gm/50ml 50 ML IV ONE
[2021-12-19] MEDS ORDERED: potassium Cl 40MEQ/1/2NS 520ml 520 ML IV PRN (01:20)
[2021-12-19] MEDS ORDERED: docusate sod 100mg capsule PO PRN (01:20)
[2021-12-19] MEDS ORDERED: magnesium 4gm in 100ml NS 100 ML IV PRN (01:20)
[2021-12-19] MEDS ORDERED: PERFLUTREN PROTEIN-A MICROSPHR (Optison) 0.22 MG/ML 3ML VIAL IV PRN (01:20)
[2021-12-19] MEDS ORDERED: MESSAGE TO PHARMACY PO ONE (01:20)
[2021-12-19] MEDS ORDERED: DEXTROSE 15 GM of carb/4 tabs (each vial/BOTTLE has 4 tablets) PO PRN ×2 (01:20)
[2021-12-19] MEDS ORDERED: glucagon, human recombinant 1mg kit SUBCUT PRN (01:20)
[2021-12-19] MEDS ORDERED: potassium Cl 20 mEq SR tablet PO PRN ×2 (01:20)
[2021-12-19] MEDS ORDERED: mag hydrox/Alum hydrox/simeth 30ml oral suspension PO PRN (01:20)
[2021-12-19] MEDS ORDERED: dextrose 50%-water 50ml dispensing syringe IV PRN ×2 (01:20)
[2021-12-19] MEDS ORDERED: albuterol 2.5 MG/3 ML nebule NEB PRN (01:30)
[2021-12-19] MEDS ORDERED: ipratropium/albuterol 3ml nebule NEB PRN (01:30)
[2021-12-19 02:35] VITALS: BP 132/71
[2021-12-19 06:00] VITALS: BP 127/70
--- NOTE | 2021-12-19 06:35 | NUR ---
Problems reprioritized. Patient report given, questions answered & plan of care reviewed with ALVA Shelby.
--- NOTE | 2021-12-19 06:47 | NUR ---
Patient in room PCU 3015. I have received report from Naima Rosen and had the opportunity to ask questions and assume patient care.
--- NOTE | 2021-12-19 07:32 | NUR ---
Diabetes consult: Pt w/ hx of DM A1c 6 on 04/26 per EMR. New A1c lab pending. Will continue to monitor, though pt has hx of dementia per EMR. Addendum: 12/19/21 at [address] Amended: Links added.
[2021-12-19] MEDS: K and/or MAG REPLACEMENT MC SCH ×2 (08:00→20:00)
[2021-12-19] MEDS ORDERED: gabapentin 100mg capsule PO SCH (08:00)
[2021-12-19] MEDS ORDERED: allopurinol 100mg tablet PO SCH (08:30)
[2021-12-19] MEDS: pantoprazole 40mg Tablet.DR PO SCH (08:35)
[2021-12-19] MEDS: furosemide 40mg/4ml inj IV SCH (08:35)
[2021-12-19] MEDS: methylPREDNISolone sod succ/PF 40mg inj. IV SCH ×2 (08:36→21:49)
[2021-12-19] MEDS: atorvastatin 10mg tablet PO SCH (08:38)
[2021-12-19] MEDS: hydrALAZINE 25 MG tablet PO SCH ×2 (08:38→16:00)
[2021-12-19] MEDS: aspirin 81mg, enteric-coated 1 TAB TABLET.DR PO SCH (08:38)
[2021-12-19] MEDS: apixaban 2.5mg tablet PO SCH ×2 (08:38→20:23)
[2021-12-19] MEDS: metoprolol succinate 25mg (24-HOUR) SR. Tablet PO SCH (08:39)
[2021-12-19] MEDS: amLODIPine 5mg tablet PO SCH (08:39)
[2021-12-19] MEDS ORDERED: pneumococcal 23-VAL P-sac vacc 25 mcg/0.5ml vial IMVAC ONE (10:00)
[2021-12-19 10:30] VITALS: BP 116/58
[2021-12-19] MEDS: ipratropium/albuterol 3ml nebule NEB SCH ×4 (12:00→23:12)
--- NOTE | 2021-12-19 12:11 | NUR ---
scanner not working. gave vaccine with teacher Tesha
[2021-12-19] MEDS: insulin Lispro (HumaLOG) vial - multi-dose SQ SCH (13:08)
[2021-12-19] MEDS ORDERED: heparin 1,000 units/ml 10ml inj IV ONE (13:15)
[2021-12-19] MEDS ORDERED: heparin 1,000unit/ml 10ml vial 10 ML IV ONE (13:15)
[2021-12-19] MEDS ORDERED: heparin 1,000 units/ml 10ml inj HE ONE ×2 (13:20→13:55)
[2021-12-19] MEDS ORDERED: CefTRIAXone/D5W-Rocephin 1gm 50 ML IV SCH (14:00)
[2021-12-19 14:35] VITALS: BP 101/64
--- NOTE | 2021-12-19 16:17 | NUR ---
Student documentation: I have reviewed and agree with all interventions,medication administration per hospital policy and assessments performed and documented by .
[2021-12-19] MEDS ORDERED: CHOL10006 PO (17:26)
[2021-12-19] MEDS ORDERED: FERR-39 PO (17:26)
[2021-12-19] MEDS ORDERED: FOLI0.8T41 PO (17:26)
[2021-12-19] MEDS ORDERED: ALBU2.5V13 NEB (17:26)
[2021-12-19] MEDS ORDERED: DONE-55 PO (17:26)
[2021-12-19 18:00] VITALS: BP 116/53
--- NOTE | 2021-12-19 18:15 | NUR ---
Problems reprioritized. Patient report given, questions answered & plan of care reviewed with Sami Bolton
--- NOTE | 2021-12-19 18:30 | NUR ---
Patient in room PCU 3015. I have received report from bry and had the opportunity to ask questions and assume patient care.
[2021-12-19] MEDS: Melatonin 3mg tablet PO SCH (20:23)
[2021-12-19] MEDS: donepezil 5mg tablet PO SCH (20:23)
[2021-12-19] MEDS: insulin glargine (Lantus) pen - multi-dose SQ SCH (21:00)
[2021-12-19] MEDS ORDERED: non-formulary drug (Donepezil Hcl 10 MG) PO SCH (21:00)
[2021-12-19] MEDS: ondansetron/PF 4mg/2ml inj IV PRN (23:39)
[2021-12-20] MEDS: hydrALAZINE 25 MG tablet PO SCH ×2 (01:01→07:58)
[2021-12-20 02:00] VITALS: BP 138/58
[2021-12-20] MEDS: ipratropium/albuterol 3ml nebule NEB SCH ×6 (03:13→23:25)
[2021-12-20 06:00] VITALS: BP 122/67
--- NOTE | 2021-12-20 06:10 | NUR ---
Patient in room PCU 3015. I have received report from Sami CANNON and had the opportunity to ask questions and assume patient care.
[2021-12-20 06:17] LABS: BASOPHILS % (AUTO) 0 % (0-1); EOSINOPHILS % (AUTO) 0 % (0-6); HEMATOCRIT 32.2 % (42.0-52.0); HEMOGLOBIN 10.5 g/dl (14.0-17.9); LYMPHOCYTES # (AUTO) 0.2 X10'3 (1.1-4.8); LYMPHOCYTES % (AUTO) 3.9 % (21-51); MEAN CORPUSCULAR HGB CONC 32.6 g/dL (33.0-36.5); MEAN CORPUSCULAR VOLUME 107.3 FL (78-98); MEAN PLATELET VOLUME 6.8 FL (7.4-10.4); MONOCYTES # (AUTO) 0.2 X10'3 (0-0.9); MONOCYTES % (AUTO) 4.4 % (2-12); NEUTROPHILS # (AUTO) 3.6 X10'3 (1.8-7.7); NEUTROPHILS % (AUTO) 91.7 % (42-75); PLATELET COUNT 204 X10'3 (140-440); RED CELL DISTRIBUTION WIDTH 15.5 % (11.5-14.5); WHITE BLOOD COUNT 3.9 X10'3 (4.5-11.0)
[2021-12-20 06:33] LABS: ALANINE AMINOTRANSFERASE 14 U/L (12-78); ALBUMIN 2.5 G/DL (3.4-5.0); ALBUMIN/GLOBULIN RATIO 0.5 (1.1-1.5); ALKALINE PHOSPHATASE 134 IU/L (46-116); ANION GAP 9 (8-16); ASPARTATE AMINO TRANSFERASE 18 U/L (10-37); BILIRUBIN,TOTAL 0.5 MG/DL (0.1-1.0); BLOOD UREA NITROGEN 38 MG/DL (7-18); BUN/CREATININE RATIO 9.8 (5.4-32.0); CALCIUM 8.3 MG/DL (8.5-10.1); CHLORIDE 96 MMOL/L (99-107); CREATININE 3.87 MG/DL (0.60-1.10); GLUCOSE 224 MG/DL (70-104); MAGNESIUM 1.9 MG/DL (1.5-2.4); POTASSIUM 4.7 MMOL/L (3.5-5.1); SODIUM 130 MMOL/L (135-145); TOTAL CARBON DIOXIDE 24.8 MMOL/L (24-32); TOTAL PROTEIN 7.8 G/DL (6.4-8.2); eGFR 15 ML/MIN
[2021-12-20] MEDS: furosemide 40mg/4ml inj IV SCH (07:55)
[2021-12-20] MEDS: methylPREDNISolone sod succ/PF 40mg inj. IV SCH ×2 (07:55→19:55)
[2021-12-20] MEDS: aspirin 81mg, enteric-coated 1 TAB TABLET.DR PO SCH (07:57)
[2021-12-20] MEDS: atorvastatin 10mg tablet PO SCH (07:58)
[2021-12-20] MEDS: allopurinol 100mg tablet PO SCH (07:58)
[2021-12-20] MEDS: gabapentin 100mg capsule PO SCH (07:58)
[2021-12-20] MEDS: apixaban 2.5mg tablet PO SCH ×2 (07:59→20:42)
[2021-12-20] MEDS: K and/or MAG REPLACEMENT MC SCH ×2 (08:00→20:00)
[2021-12-20] MEDS: metoprolol succinate 25mg (24-HOUR) SR. Tablet PO SCH (08:00)
[2021-12-20] MEDS: amLODIPine 5mg tablet PO SCH (08:01)
[2021-12-20] MEDS: pantoprazole 40mg Tablet.DR PO SCH (08:11)
[2021-12-20 10:00] VITALS: BP 106/52
--- NOTE | 2021-12-20 10:17 | NUR ---
Humalog wasn't available until late. No humalog given due to time it was available. will treat for afternoon accu check
[2021-12-20] MEDS: insulin Lispro (HumaLOG) vial - multi-dose SQ SCH ×2 (13:24→20:41)
--- NOTE | 2021-12-20 15:12 | NUR ---
patient complaining of SOB and stating he needs a breathing treatment. Paged Respiratory
--- NOTE | 2021-12-20 17:48 | NUR ---
Problems reprioritized. Patient report given, questions answered & plan of care reviewed with Sami CANNON.
[2021-12-20 18:00] VITALS: BP 107/56
--- NOTE | 2021-12-20 18:30 | NUR ---
Patient in room PCU 3015. I have received report from bertha and had the opportunity to ask questions and assume patient care.
[2021-12-20] MEDS: CefTRIAXone/D5W-Rocephin 1gm 50 ML IV SCH (19:55)
[2021-12-20] MEDS: insulin glargine (Lantus) pen - multi-dose SQ SCH (20:40)
[2021-12-20] MEDS: donepezil 5mg tablet PO SCH (20:42)
[2021-12-20] MEDS: Melatonin 3mg tablet PO SCH (20:42)
[2021-12-20] MEDS: temazepam 15mg capsule PO PRN (22:11)
[2021-12-21] MEDS: ondansetron/PF 4mg/2ml inj IV PRN (00:08)
[2021-12-21] MEDS: acetaminophen 325mg tablet PO PRN ×2 (00:21→22:08)
[2021-12-21] MEDS: hydrALAZINE 25 MG tablet PO SCH ×3 (01:00→16:00)
[2021-12-21 02:00] VITALS: BP 126/59
[2021-12-21] MEDS: ipratropium/albuterol 3ml nebule NEB SCH ×6 (02:52→23:28)
[2021-12-21 06:00] VITALS: BP 129/68
--- NOTE | 2021-12-21 06:33 | NUR ---
Problems reprioritized. Patient report given, questions answered & plan of care reviewed with june.
[2021-12-21 06:39] LABS: BASOPHILS % (AUTO) 0 % (0-1); EOSINOPHILS % (AUTO) 0 % (0-6); HEMATOCRIT 31.4 % (42.0-52.0); HEMOGLOBIN 10.1 g/dl (14.0-17.9); LYMPHOCYTES # (AUTO) 0.1 X10'3 (1.1-4.8); LYMPHOCYTES % (AUTO) 2.1 % (21-51); MEAN CORPUSCULAR HEMOGLOBIN 34.8 PG (27.0-31.0); MEAN CORPUSCULAR HGB CONC 32.3 g/dL (33.0-36.5); MEAN CORPUSCULAR VOLUME 107.5 FL (78-98); MEAN PLATELET VOLUME 6.8 FL (7.4-10.4); MONOCYTES # (AUTO) 0.3 X10'3 (0-0.9); NEUTROPHILS # (AUTO) 4.1 X10'3 (1.8-7.7); NEUTROPHILS % (AUTO) 91.9 % (42-75); PLATELET COUNT 205 X10'3 (140-440); RED BLOOD COUNT 2.92 X10'6 (4.70-6.10); RED CELL DISTRIBUTION WIDTH 15.6 % (11.5-14.5); WHITE BLOOD COUNT 4.5 X10'3 (4.5-11.0)
[2021-12-21 06:52] LABS: ALANINE AMINOTRANSFERASE 12 U/L (12-78); ALBUMIN 2.3 G/DL (3.4-5.0); ALBUMIN/GLOBULIN RATIO 0.5 (1.1-1.5); ALKALINE PHOSPHATASE 114 IU/L (46-116); ANION GAP 9 (8-16); ASPARTATE AMINO TRANSFERASE 16 U/L (10-37); BILIRUBIN,TOTAL 0.4 MG/DL (0.1-1.0); BLOOD UREA NITROGEN 59 MG/DL (7-18); BUN/CREATININE RATIO 13.1 (5.4-32.0); CALCIUM 7.9 MG/DL (8.5-10.1); CHLORIDE 93 MMOL/L (99-107); CREATININE 4.52 MG/DL (0.60-1.10); GLUCOSE 340 MG/DL (70-104); MAGNESIUM 1.8 MG/DL (1.5-2.4); POTASSIUM 5.1 MMOL/L (3.5-5.1); SODIUM 127 MMOL/L (135-145); TOTAL CARBON DIOXIDE 24.8 MMOL/L (24-32); TOTAL PROTEIN 7.3 G/DL (6.4-8.2); eGFR 12 ML/MIN
[2021-12-21] MEDS: aspirin 81mg, enteric-coated 1 TAB TABLET.DR PO SCH (08:00)
[2021-12-21] MEDS ORDERED: heparin 1,000 units/ml 10ml inj IV ONE (08:00)
[2021-12-21] MEDS: K and/or MAG REPLACEMENT MC SCH ×2 (08:00→20:00)
[2021-12-21] MEDS ORDERED: EPOETIN ALFA-EPBX 20,000 UNIT/ML 1 ML MDV IV ONE (08:00)
[2021-12-21] MEDS ORDERED: heparin 1,000unit/ml 10ml vial 10 ML IV ONE (08:00)
[2021-12-21] MEDS ORDERED: albumin (human) 25% 100ml IV 100 ML IV PRN (08:00)
[2021-12-21] MEDS ORDERED: heparin 1,000 units/ml 10ml inj HE ONE ×2 (08:55)
[2021-12-21] MEDS: gabapentin 100mg capsule PO SCH (10:28)
[2021-12-21] MEDS: atorvastatin 10mg tablet PO SCH (10:28)
[2021-12-21] MEDS: allopurinol 100mg tablet PO SCH (10:28)
[2021-12-21] MEDS: amLODIPine 5mg tablet PO SCH (10:33)
[2021-12-21] MEDS: metoprolol succinate 25mg (24-HOUR) SR. Tablet PO SCH (10:33)
[2021-12-21] MEDS: apixaban 2.5mg tablet PO SCH ×2 (10:33→21:09)
[2021-12-21] MEDS: pantoprazole 40mg Tablet.DR PO SCH (10:33)
[2021-12-21] MEDS: methylPREDNISolone sod succ/PF 40mg inj. IV SCH ×2 (10:34→22:52)
[2021-12-21] MEDS: furosemide 40mg/4ml inj IV SCH (10:34)
[2021-12-21 11:38] VITALS: BP 116/63
[2021-12-21 11:50] VITALS: BP 114/61
[2021-12-21] MEDS ORDERED: HYDROcodone/acetaminophen 5mg/325mg tablet PO ONE (12:25)
[2021-12-21 18:00] VITALS: BP 113/62
[2021-12-21] MEDS: Melatonin 3mg tablet PO SCH (21:09)
[2021-12-21] MEDS: donepezil 5mg tablet PO SCH (21:09)
[2021-12-21] MEDS: insulin glargine (Lantus) pen - multi-dose SQ SCH (21:13)
[2021-12-21] MEDS: temazepam 15mg capsule PO PRN (22:08)
[2021-12-21] MEDS: CefTRIAXone/D5W-Rocephin 1gm 50 ML IV SCH (22:52)
[2021-12-22 02:00] VITALS: BP 129/60
[2021-12-22] MEDS: ipratropium/albuterol 3ml nebule NEB SCH ×4 (03:47→15:19)
[2021-12-22 06:00] VITALS: BP 119/66
--- NOTE | 2021-12-22 06:27 | NUR ---
Problems reprioritized. Patient report given, questions answered & plan of care reviewed with josesito.
--- NOTE | 2021-12-22 06:36 | NUR ---
Patient in room PCU 3015. I have received report from KASSANDRA Gallardo and had the opportunity to ask questions and assume patient care.
[2021-12-22 07:22] LABS: BASOPHILS % (AUTO) 0.5 % (0-1); EOSINOPHILS % (AUTO) 0 % (0-6); HEMATOCRIT 32.8 % (42.0-52.0); HEMOGLOBIN 10.8 g/dl (14.0-17.9); LYMPHOCYTES # (AUTO) 0.1 X10'3 (1.1-4.8); LYMPHOCYTES % (AUTO) 1.6 % (21-51); MEAN CORPUSCULAR HEMOGLOBIN 35.2 PG (27.0-31.0); MEAN CORPUSCULAR HGB CONC 32.8 g/dL (33.0-36.5); MEAN CORPUSCULAR VOLUME 107.2 FL (78-98); MEAN PLATELET VOLUME 7.1 FL (7.4-10.4); MONOCYTES # (AUTO) 0.2 X10'3 (0-0.9); MONOCYTES % (AUTO) 3.6 % (2-12); NEUTROPHILS # (AUTO) 4.4 X10'3 (1.8-7.7); NEUTROPHILS % (AUTO) 94.3 % (42-75); PLATELET COUNT 193 X10'3 (140-440); RED BLOOD COUNT 3.06 X10'6 (4.70-6.10); RED CELL DISTRIBUTION WIDTH 15.5 % (11.5-14.5); WHITE BLOOD COUNT 4.6 X10'3 (4.5-11.0)
[2021-12-22 07:37] LABS: ALANINE AMINOTRANSFERASE 17 U/L (12-78); ALBUMIN 2.8 G/DL (3.4-5.0); ALBUMIN/GLOBULIN RATIO 0.6 (1.1-1.5); ALKALINE PHOSPHATASE 108 IU/L (46-116); ANION GAP 8 (8-16); ASPARTATE AMINO TRANSFERASE 16 U/L (10-37); BILIRUBIN,TOTAL 0.4 MG/DL (0.1-1.0); BLOOD UREA NITROGEN 38 MG/DL (7-18); BUN/CREATININE RATIO 12.1 (5.4-32.0); CALCIUM 7.8 MG/DL (8.5-10.1); CHLORIDE 94 MMOL/L (99-107); CREATININE 3.14 MG/DL (0.60-1.10); GLUCOSE 276 MG/DL (70-104); MAGNESIUM 1.8 MG/DL (1.5-2.4); POTASSIUM 4.8 MMOL/L (3.5-5.1); SODIUM 129 MMOL/L (135-145); TOTAL CARBON DIOXIDE 27.1 MMOL/L (24-32); TOTAL PROTEIN 7.4 G/DL (6.4-8.2); eGFR 19 ML/MIN
[2021-12-22] MEDS: K and/or MAG REPLACEMENT MC SCH (08:00)
[2021-12-22] MEDS: gabapentin 100mg capsule PO SCH (08:32)
[2021-12-22] MEDS: atorvastatin 10mg tablet PO SCH (08:32)
[2021-12-22] MEDS: apixaban 2.5mg tablet PO SCH (08:32)
[2021-12-22] MEDS: aspirin 81mg, enteric-coated 1 TAB TABLET.DR PO SCH (08:33)
[2021-12-22] MEDS: amLODIPine 5mg tablet PO SCH (08:33)
[2021-12-22 08:39] VITALS: BP_SYST 121
[2021-12-22] MEDS: pantoprazole 40mg Tablet.DR PO SCH (08:39)
[2021-12-22] MEDS: hydrALAZINE 25 MG tablet PO SCH ×2 (08:39)
[2021-12-22] MEDS: metoprolol succinate 25mg (24-HOUR) SR. Tablet PO SCH (08:40)
[2021-12-22] MEDS: insulin Lispro (HumaLOG) vial - multi-dose SQ SCH (08:49)
[2021-12-22] MEDS: methylPREDNISolone sod succ/PF 40mg inj. IV SCH (08:50)
[2021-12-22] MEDS: furosemide 40mg/4ml inj IV SCH (08:50)
[2021-12-22] MEDS: ondansetron/PF 4mg/2ml inj IV PRN (09:52)
--- NOTE | 2021-12-22 16:36 | NUR ---
Patient discharge home with family. Discharge information was provided and review with patient who verbalized understanding, with grandson present. Staff assisted patient to personal vehicle with all belongings.
== END 2021-12-22 15:55 | disposition home health service (06) | DRG 193 ==
LOC: ER 21:27 → ED HOLD 12-19 01:27 → PCU 3S 12-19 02:31
PROVIDERS: ADMIT Family Medicine; ATTEND Internal Medicine
PROC: 3E0234Z Introduction of Serum, Toxoid and Vaccine into Muscle, Percutaneous Approach (ICD-10-PCS; 2021-12-19)
PROC: 5A1D70Z Performance of Urinary Filtration, Intermittent, Less than 6 Hours Per Day (ICD-10-PCS; 2021-12-19)
PROC: 5A0935A Assistance with Respiratory Ventilation, Less than 24 Consecutive Hours, High Flow/Velocity Cannula (ICD-10-PCS; principal; 2021-12-21)
PROC: 0W9B3ZZ Drainage of Left Pleural Cavity, Percutaneous Approach (ICD-10-PCS; 2021-12-21)
PROC: 0W993ZZ Drainage of Right Pleural Cavity, Percutaneous Approach (ICD-10-PCS; 2021-12-21)
PROC: 5A1D70Z Performance of Urinary Filtration, Intermittent, Less than 6 Hours Per Day (ICD-10-PCS; 2021-12-21)
PROC: 5A0935A Assistance with Respiratory Ventilation, Less than 24 Consecutive Hours, High Flow/Velocity Cannula (ICD-10-PCS; 2021-12-22)
DX: J18.1 Lobar pneumonia, unspecified organism (principal); I50.23 Acute on chronic systolic (congestive) heart failure; J96.20 Acute and chronic respiratory failure, unspecified whether with hypoxia or hypercapnia; N18.6 End stage renal disease; N17.9 Acute kidney failure, unspecified; I13.2 Hypertensive heart and chronic kidney disease with heart failure and with stage 5 chronic kidney disease, or end stage renal disease; J44.1 Chronic obstructive pulmonary disease with (acute) exacerbation; E87.1 Hypo-osmolality and hyponatremia; I48.20 Chronic atrial fibrillation, unspecified; J44.0 Chronic obstructive pulmonary disease with (acute) lower respiratory infection; J91.8 Pleural effusion in other conditions classified elsewhere; Z20.822 Contact with and (suspected) exposure to COVID-19; B96.5 Pseudomonas (aeruginosa) (mallei) (pseudomallei) as the cause of diseases classified elsewhere; B95.7 Other staphylococcus as the cause of diseases classified elsewhere; Z60.2 Problems related to living alone; G89.29 Other chronic pain; E11.22 Type 2 diabetes mellitus with diabetic chronic kidney disease; E87.5 Hyperkalemia; F03.90 Unspecified dementia, unspecified severity, without behavioral disturbance, psychotic disturbance, mood disturbance, and anxiety; I25.10 Atherosclerotic heart disease of native coronary artery without angina pectoris; Z89.512 Acquired absence of left leg below knee; Z95.1 Presence of aortocoronary bypass graft; Z99.2 Dependence on renal dialysis; Z99.81 Dependence on supplemental oxygen; Z23 Encounter for immunization; Z79.899 Other long term (current) drug therapy; Z79.82 Long term (current) use of aspirin
CPT/HCPCS: 32555; 36415; 71045; 80053; 81001; 82948; 83036; 83605; 83735; 83880; 84145; 84484; 85025; 87040; 87077; 87081; 87088; 87186; 87502; 87503; 87635; 93005; 93306; 94640; 94760; 96365; 96375; 99285; A4421; A4615; A6212; A6213; A6258; A6449; C1729; C1769; C9803; G0257; G0378; J0696; J1644; J1815; J1940; J2405; J2543; J2920; J2930; J7030; J7040; P9047; Q4081

== ENCOUNTER 2021-12-30 11:21 | Emergency (ER) | payer OTHER, MEDICARE ==
[~2021-12-30 11:21] MED LIST changes: +ALBU2.5V13 NEB; -CHOL100046 PO; +CHOL10006 PO; -DONE-46 PO; +DONE-55 PO; +FERR-39 PO; -FLO0.4C PO; +FOLI0.8T41 PO; -GENT30CR TOP; -GLYC-23 RC; -HYDR-3965 PO; +MELA10TA2 PO; -SILV50CR31 TOP
[2021-12-30] MEDS ORDERED: albuterol 2.5 MG/3 ML nebule NEB ONE (12:25)
[2021-12-30 12:29] LABS: BASOPHILS % (AUTO) 0.2 % (0-1); EOSINOPHILS # (AUTO) 0.3 X10'3 (0-0.9); HEMATOCRIT 37.9 % (42.0-52.0); LYMPHOCYTES # (AUTO) 0.3 X10'3 (1.1-4.8); LYMPHOCYTES % (AUTO) 3.7 % (21-51); MEAN CORPUSCULAR HEMOGLOBIN 34.1 PG (27.0-31.0); MEAN CORPUSCULAR HGB CONC 31.6 g/dL (33.0-36.5); MEAN PLATELET VOLUME 6.6 FL (7.4-10.4); MONOCYTES # (AUTO) 0.7 X10'3 (0-0.9); NEUTROPHILS # (AUTO) 6.5 X10'3 (1.8-7.7); NEUTROPHILS % (AUTO) 83.1 % (42-75); PLATELET COUNT 181 X10'3 (140-440); RED BLOOD COUNT 3.51 X10'6 (4.70-6.10); WHITE BLOOD COUNT 7.8 X10'3 (4.5-11.0)
[2021-12-30 12:43] LABS: ALANINE AMINOTRANSFERASE 22 U/L (12-78); ALBUMIN 2.7 G/DL (3.4-5.0); ALBUMIN/GLOBULIN RATIO 0.5 (1.1-1.5); ALKALINE PHOSPHATASE 168 IU/L (46-116); ANION GAP 10 (8-16); ASPARTATE AMINO TRANSFERASE 19 U/L (10-37); BILIRUBIN,TOTAL 0.8 MG/DL (0.1-1.0); BLOOD UREA NITROGEN 20 MG/DL (7-18); CALCIUM 8.9 MG/DL (8.5-10.1); CHLORIDE 97 MMOL/L (99-107); CREATININE 2.85 MG/DL (0.60-1.10); GLUCOSE 136 MG/DL (70-104); POTASSIUM 3.5 MMOL/L (3.5-5.1); SODIUM 132 MMOL/L (135-145); TOTAL PROTEIN 8.2 G/DL (6.4-8.2); eGFR 21 ML/MIN
[2021-12-30 14:56] VITALS: BP 158/80
--- NOTE | 2021-12-30 17:23 | NUR ---
Patient's son called ER stating that the PIV was left in his fathers arm. Son states that they live in [place] and are unable to come back to ER due to difficulty with transporting patient. I gave verbal instruction over the phone to discontinue PIV. Son stated that he had sterile gauze and medical tape. Walked son through discontinue IV and PIV was pulled out intact, Son stated bevel/or catheter tip was present at end of catheter. Bleeding controlled with direct pressure for approx. 1-2 minutes, gauze and tape applied. Stayed on the phone with son until no longer bleeding. Son educated regarding signs and symptoms of potential infection.
== END 2021-12-30 14:59 | disposition home or self-care (01) ==
LOC: ER 11:21
DX: R06.09 Other forms of dyspnea (principal); I13.0 Hypertensive heart and chronic kidney disease with heart failure and stage 1 through stage 4 chronic kidney disease, or unspecified chronic kidney disease; E13.22 Other specified diabetes mellitus with diabetic chronic kidney disease; N18.9 Chronic kidney disease, unspecified; I50.89 Other heart failure; G89.29 Other chronic pain; F03.90 Unspecified dementia, unspecified severity, without behavioral disturbance, psychotic disturbance, mood disturbance, and anxiety; Z88.8 Allergy status to other drugs, medicaments and biological substances; Z79.82 Long term (current) use of aspirin
CPT/HCPCS: 36415; 71045; 80053; 83605; 83880; 85025; 87040; 93005; 94640; 94760; 99285